=== PATIENT | male | born 1965 | race Caucasian/White ===

== ENCOUNTER 2020-02-23 08:10 | Day surgery (SDC) | payer OTHER, SELFPAY ==
--- NOTE | ~2020-02-23 | XR_ITS ---
EXAMINATION: XR abdomen/kub 1V DATE: 02/23/2020 10:40 INDICATION: Nephrolithiasis. Preoperative evaluation for lithotripsy. TECHNIQUE: A supine view of the abdomen on 2 radiographs was obtained. COMPARISON: 03/13/2014 FINDINGS: There are 4 stones measuring between 2 mm and 5 mm at the left kidney. 6 mm obstructing stone at the proximal left ureter with mild right hydronephrosis. The conspicuity of the bilateral renal collectin g systems suggests possible small amount of excreted contrast. Correlate with clinical history. Uncha nged pattern of phleboliths in the pelvis. Normal bowel gas pattern. Mild lumbar dextrocurvature with moderate spondylosis. IMPRESSION: 1. Bilateral nephrolithiasis with obstructing 6 mm proximal right ureteral stone resulting in mild ri ght hydronephrosis. Reviewed, dictated and finalized at location A. IMPRESSION: 1. Bilateral nephrolithiasis with obstructing 6 mm proximal right ureteral ston e resulting in mild right hydronephrosis.
[2020-02-23 08:39] VITALS: BMI 30.9
--- NOTE | 2020-02-23 11:25 | ECG_ITS ---
Measurements Intervals [place] Rate: 75 P: 50 LA: 170 QRS: 68 QRSD: 102 T: 47 QT: 366 QTc: 411 Interpretive Statements SINUS RHYTHM POSSIBLE LEFT ATRIAL ENLARGEMENT BASELINE ARTIFACT- II, III, AVL, AVF, V2, V6 BORDERLINE ECG Electronically Signed On 02-23-2020 12:23:54 CDT by Matthieu Tsang D.O.
--- NOTE | 2020-02-23 11:52 | WPDANESEPPF ---
Anes - Initial Pre Proc Eval Procedure: Operation Date: 02/23/20 12:30 Proposed Procedures p Right Ureteral Extracorporeal Shock Wave Lithotripsy - John Orr MD Date/Time: 02/23/20 11:52 Surgeon: John Orr MD Pre Op Diagnosis: right ureteral stone Patient Data Age: 54 Gender: M Height: 6 ft 2 in Weight: 109.09 kg Allergies Allergy/AdvReac Type Severity Reaction Status Date / Time No Known Allergies Allergy Verified 02/23/20 08:53 Home Medications Medication Instructions Recorded Confirmed Type allopurinol 200 mg PO DAILY 02/23/20 02/23/20 History allopurinol 300 mg PO DAILY 02/23/20 02/23/20 History aspirin 81 mg PO DAILY 02/23/20 02/23/20 History atorvastatin 40 mg PO DAILY 02/23/20 02/23/20 History cholecalciferol (vitamin D3) 25 mcg PO DAILY 02/23/20 02/23/20 History [Vitamin D3] colchicine 0.6 mg PO DAILY PRN 02/23/20 02/23/20 History divalproex 500 mg PO DAILY 02/23/20 02/23/20 History hydrocodone-acetaminophen 1 tablet PO Q6H PRN 02/23/20 02/23/20 History ibuprofen 600 mg PO TID PRN 02/23/20 02/23/20 History ketorolac 10 mg PO QID PRN 02/23/20 02/23/20 History omeprazole 40 mg PO DAILY 02/23/20 02/23/20 History ondansetron 4 mg PO Q8H PRN 02/23/20 02/23/20 History tamsulosin 0.4 mg PO DAILY 02/23/20 02/23/20 History Patient hx anesthesia problems: none Family hx anesthesia problems: none PMFSH Past Medical History Medical History (Updated 02/23/20 @ 11:52 by Dayron Skaggs MD) CVA (cerebral vascular accident) no residual except gets hot quickly with exertion GERD (gastroesophageal reflux disease) Hyperlipidemia PARUL (obstructive sleep apnea) Social History Social History Smoking status: Never smoker Spiritual care concerns: No Anes - Eval Final PreProcedure Day of Procedure 02/23/20 11:52 Patient weight: obese Heart: regular rate and rhythm Lungs: clear to auscultation Airway: Mallampati scale class III Neurological: alert and oriented Last oral intake: >/= 8 hours ASA classification: III Emergent: no Anesthetic plan: proceed Anesthesia type and monitoring: general LMA and standard monitoring Informed Consent: The patient's anesthetic plan and its attendant risks and benefits were discussed with the patient/family/POA. Questions were solicited and answers provided to the satisfaction of the patient/family/POA.
[2020-02-23] MEDS: LACTATED RINGERS 1,000 ML 30 ML IV CONT (12:00)
[2020-02-23 12:10] LABS: INR 1.1; Prothrombin Time 13.4 Seconds (11.1-14.7)
[2020-02-23 12:11] LABS: Partial Thromboplastin Time 29.8 SECONDS (22.3-36.8)
--- NOTE | 2020-02-23 12:59 | PM.HPGS ---
History of Present Illness History of Present Illness Consent: Risks, benefits, and alternatives have been discussed and questions answered. Patient agrees to proceed with procedure. Chief complaint: right ureteral stone Narrative: Yusef Wylie is a 54 year old male who's a recurrent stone former. He was in ER yesterday with right renal colic. CT imaging revealed 6-7mm right mid-ureteral stone and smaller renal stones. Review of Systems Cardiovascular: Cardiovascular: Denies chest pain, Denies lightheadedness, Denies palpitations and Denies dyspnea Respiratory: Respiratory: Denies dyspnea Gastrointestinal: Gastrointestinal: Denies diarrhea, Denies nausea and Denies vomiting Genitourinary: Genitourinary: Denies hematuria and Denies dysuria Endocrine: Endocrine: Denies palpitations [facility] Past Medical History Medical History CVA (cerebral vascular accident) no residual except gets hot quickly with exertion GERD (gastroesophageal reflux disease) Hyperlipidemia PARUL (obstructive sleep apnea) Social History Social History Smoking status: Never smoker Spiritual care concerns: No Meds Home Medications and Allergies Home Medications Medication Instructions Recorded Confirmed Type allopurinol 200 mg PO DAILY 02/23/20 02/23/20 History allopurinol 300 mg PO DAILY 02/23/20 02/23/20 History aspirin 81 mg PO DAILY 02/23/20 02/23/20 History atorvastatin 40 mg PO DAILY 02/23/20 02/23/20 History cholecalciferol (vitamin D3) 25 mcg PO DAILY 02/23/20 02/23/20 History [Vitamin D3] colchicine 0.6 mg PO DAILY PRN 02/23/20 02/23/20 History divalproex 500 mg PO DAILY 02/23/20 02/23/20 History hydrocodone-acetaminophen 1 tablet PO Q6H PRN 02/23/20 02/23/20 History ibuprofen 600 mg PO TID PRN 02/23/20 02/23/20 History ketorolac 10 mg PO QID PRN 02/23/20 02/23/20 History omeprazole 40 mg PO DAILY 02/23/20 02/23/20 History ondansetron 4 mg PO Q8H PRN 08/28/20 08/28/20 History tamsulosin 0.4 mg PO DAILY 02/23/20 02/23/20 History Allergies Allergy/AdvReac Type Severity Reaction Status Date / Time No Known Allergies Allergy Verified 02/23/20 12:41 Exam Const: General: no acute distress Resp: Effort & Inspection: normal respiratory effort GI: Inspection: non-distended GI Palp: No abdominal tenderness and No Guarding due to palpation present (GI) Auscultation: normal bowel sounds Assessment and Plan Assessment and plan (1) Right ureteral stone: Code(s): N20.1 - Calculus of ureter Status: Acute Assessment and Plan: Right ESWL
[2020-02-23] MEDS: ceFAZolin 2 GM/D5W 50 ML 2 GM/50 ML BAG IVPB (13:12)
[2020-02-23 14:03] VITALS: BP 171/90; PULSE 84; RESP 12; TEMP 36.4; O2SAT 100
[2020-02-23 14:15] VITALS: BP 154/75; PULSE 81; RESP 20; O2SAT 98
--- NOTE | 2020-02-23 14:18 | PM.PROC ---
Procedure Note - Detailed Date of procedure: 02/23/20 Pre-op diagnosis: right ureteral stone Post-op diagnosis: same Procedure performed: Right ESWL Description of procedure: The patient was brought to the operative suite where he was placed in the supine position on the Dornier lithotripsy table. The focal point of the lithotripter was placed at a 7mm right mid-ureteral calculus. A total of 3000 shocks were delivered at a power setting of 8. There appeared to be good fragmentation of the stone. The patient tolerated the procedure well and was taken to the recovery room in good condition. Anesthesia: GLMA Surgeon: John Orr MD Estimated blood loss (mL): 0 Drains: No Packing: No Pathology: none sent Complications: No immediate complications Condition: stable Disposition: PACU
[2020-02-23 14:30] VITALS: BP 130/75; PULSE 80; RESP 18; O2SAT 93
[2020-02-23 14:41] VITALS: BP 145/71; PULSE 75; RESP 16
[2020-02-23 15:11] VITALS: BP 145/75; PULSE 75; RESP 16
[2020-02-23 15:41] VITALS: BP 126/68; PULSE 72; RESP 16
== END 2020-02-23 16:00 | disposition home or self-care (01) ==
PROVIDERS: Anesthesiology; Visit Provider Urology
PROC: (CPT 50590; principal; 2020-02-23 12:30)
DX: N20.1 Calculus of ureter (principal); E78.5 Hyperlipidemia, unspecified; K21.9 Gastro-esophageal reflux disease without esophagitis; G47.33 Obstructive sleep apnea (adult) (pediatric); Z86.73 Personal history of transient ischemic attack (TIA), and cerebral infarction without residual deficits; Z79.82 Long term (current) use of aspirin; Z79.899 Other long term (current) drug therapy
CPT/HCPCS: 50590; 36415; 74018; 85610; 85730; 93005; J0690; J1100; J2250; J2405; J2704; J3010; J7120

== ENCOUNTER 2020-03-12 10:59 | Outpatient (CLI) | payer OTHER, SELFPAY ==
--- NOTE | ~2020-03-12 | XR_ITS ---
EXAMINATION: XR abdomen/kub 1V DATE: 03/12/2020 11:13 INDICATION: Right ureteral stone. TECHNIQUE: A supine view of the abdomen on 2 radiographs was obtained. COMPARISON: CT abdomen and pelvis 05/17/2012, abdomen radiographs 02/23/2020, 03/13/2014 FINDINGS: There are no dilated loops of bowel. There are phleboliths in left pelvis. There are 3 ston es in left kidney measuring up to 4 mm. There are 6 mm and 3 mm stones in proximal right ureter. IMPRESSION: 1. Stones in the proximal right ureter and left kidney. Reviewed, dictated and finalized at location A.
== END 2020-03-12 11:00 | disposition home or self-care (01) ==
PROVIDERS: Visit Provider Urology
DX: N20.1 Calculus of ureter (principal); N20.0 Calculus of kidney
CPT/HCPCS: 74018

== ENCOUNTER 2020-03-19 08:42 | Outpatient (CLI) | payer OTHER, SELFPAY ==
--- NOTE | ~2020-03-19 | XR_ITS ---
XR abdomen/kub 1V 03/19/2020 09:00 Indication: Follow-up ureteral stone Procedure: KUB Comparison: Comparison to multiple prior studies sequentially, with oldest reviewed study dated 02/07. Findings: There are right ureteral stones at the L3-4 level. There are multiple left renal stones. Derick wel gas pattern nonobstructive. There are pelvic phleboliths. Moderate lumbar spondylosis. Impression: 1: Stable position to right ureteral and left renal stones. Reviewed, dictated and finalized at location A. Impression: 1: Stable position to right ureteral and left renal stones.
== END 2020-03-19 08:43 | disposition home or self-care (01) ==
LOC: ANHIMG 08:45
PROVIDERS: Visit Provider Urology
DX: N20.1 Calculus of ureter (principal)
CPT/HCPCS: 74018

== ENCOUNTER 2020-03-20 08:39 | Outpatient (CLI) | payer OTHER, SELFPAY ==
[2020-03-20 18:39] LABS: SARS-CoV-2 RNA PCR Negative
== END 2020-03-20 08:40 | disposition home or self-care (01) ==
LOC: ANHCOVIDDT 08:39
PROVIDERS: Visit Provider Urology
DX: Z01.812 Encounter for preprocedural laboratory examination (principal); Z20.828 Contact with and (suspected) exposure to other viral communicable diseases
CPT/HCPCS: 87635; C9803; U0003

== ENCOUNTER 2020-03-22 01:57 | Day surgery (SDC) | payer OTHER, SELFPAY ==
[2020-03-20 11:01] VITALS: BMI 30.9
[2020-03-22] VITALS (9 sets, daily range): BP systolic 122–158; BP diastolic 80–96; PULSE 55–62; RESP 9–22; TEMP 36.4; O2SAT 98–99
--- NOTE | ~2020-03-22 | XR_ITS ---
EXAMINATION: XR retrograde pyelo w/stent RT DATE: 03/22/2020 13:00 INDICATION: Right renal stone extraction and stent placement TECHNIQUE: Fluoroscopic images from a right internal ureteral stent placement are submitted for elif mckinney 130 seconds of fluoroscopy time. 89 fluoroscopic images. FINDINGS: There is a right double-J internal ureteral stent projecting in expected position, with proximal [place] loop at the level of the renal pelvis and distal loop in the pelvis within the bladder lumen. IMPRESSION: 1. Right internal ureteral stent placement. Please refer to real-time procedural findings for dalila morgan. Reviewed, dictated and finalized at location A. IMPRESSION: 1. Right internal ureteral stent placement. Please refer to real-time procedu ral findings for details.
--- NOTE | 2020-03-22 06:45 | WPDHPUPDATE1 ---
History and Physical Update Update Date/Time: 03/22/20 06:45 History and Physical has been reviewed, including an updated exam of the patient. There are NO changes in the patient's condition. Risks, benefits, and alternatives have been discussed and questions answered. Patient agrees to proceed with procedure.
--- NOTE | 2020-03-22 10:44 | WPDANESEPPF ---
Anes - Initial Pre Proc Eval Procedure: Operation Date: 03/22/20 12:15 Proposed Procedures p Cystoscopy, Right Ureteroscopy, Right Stone Extraction, Possible Right Stent Placement - John Orr MD s Holmium Laser Procedure - John Orr MD Date/Time: 03/22/20 10:44 Surgeon: John Orr MD Pre Op Diagnosis: Rt ureteral/kidney stone Patient Data Age: 54 Gender: M Height: 6 ft 2 in Weight: 109.09 kg Allergies Allergy/AdvReac Type Severity Reaction Status Date / Time No Known Allergies Allergy Verified 03/20/20 11:01 Home Medications Medication Instructions Recorded Confirmed Type allopurinol 200 mg PO DAILY 02/23/20 03/20/20 History allopurinol 300 mg PO DAILY 02/23/20 03/20/20 History aspirin 81 mg PO DAILY 02/23/20 03/20/20 History atorvastatin 40 mg PO DAILY 02/23/20 03/20/20 History cholecalciferol (vitamin D3) 25 mcg PO DAILY 02/23/20 03/20/20 History [Vitamin D3] colchicine 0.6 mg PO DAILY PRN 02/23/20 03/20/20 History divalproex 500 mg PO DAILY 02/23/20 03/20/20 History hydrocodone-acetaminophen 1 tablet PO Q6H PRN 02/23/20 03/20/20 History ibuprofen 600 mg PO TID PRN 02/23/20 03/20/20 History ketorolac 10 mg PO QID PRN 02/23/20 03/20/20 History omeprazole 40 mg PO DAILY 02/23/20 03/20/20 History ondansetron 4 mg PO Q8H PRN 02/23/20 03/20/20 History ketorolac 10 mg PO Q6H 5 Days #20 tablet 03/22/20 Rx sulfamethoxazole-trimethoprim 1 tablet PO Q12H #6 tablet 03/22/20 Rx Patient hx anesthesia problems: none Family hx anesthesia problems: none PMFSH Past Medical History Medical History CVA (cerebral vascular accident) no residual except gets hot quickly with exertion GERD (gastroesophageal reflux disease) Hyperlipidemia PARUL (obstructive sleep apnea) Social History Social History Smoking status: Never smoker Spiritual care concerns: No Anes - Eval Final PreProcedure Day of Procedure 03/22/20 10:44 Patient weight: obese Heart: regular rate and rhythm Lungs: clear to auscultation Airway: Mallampati scale class II and special considerations poor opening Neurological: alert and oriented Last oral intake: >/= 8 hours ASA classification: III Emergent: no Anesthetic plan: proceed Anesthesia type and monitoring: general LMA Informed Consent: The patient's anesthetic plan and its attendant risks and benefits were discussed with the patient/family/POA. Questions were solicited and answers provided to the satisfaction of the patient/family/POA.
[2020-03-22] MEDS: LACTATED RINGERS 1,000 ML 30 ML IV CONT (10:45)
[2020-03-22] MEDS: ceFAZolin 2 GM/D5W 50 ML 2 GM/50 ML BAG IVPB (11:53)
[2020-03-22] MEDS: KETOROLAC 30 MG/ML VIAL (*BKC) IV PUSH (12:05)
[2020-03-22] MEDS: LIDOCAINE HCL 2% GEL UROJET 10 ML PKG MUCOUS MEM (12:06)
--- NOTE | 2020-03-22 13:02 | PM.PROC ---
Procedure Note - Detailed Date of procedure: 03/22/20 Pre-op diagnosis: Rt ureteral/kidney stone Procedure performed: 1. Cystoscopy with right ureteroscopy, laser lithotripsy with stone extraction and right ureteral stent placement. 2. Right retrograde pyelography. Description of procedure: The patient was brought to the operative suite where he is prepped and draped in a routine sterile fashion while in the dorsal lithotomy position after the uneventful induction of a general LMA anesthetic. A 19F rigid cystoscope was placed in the bladder. There are no urethral strictures. His prostatic urethra measures, approximately, 2.0cm with no median lobe enlargement. The bladder mucosa was endoscopically normal without hyperemia or neoplasm. There was a single, orthotopic ureteral orifice bilaterally. A 0.035 glidewire was advanced into the right renal pelvis under fluoroscopy. The distal ureter was dilated with an 8F/10F ureteral dilator. Ureteroscopy was undertaken with a 7.5F flexible ureteroscope. During ureteroscopy I fractured the stone into smaller pieces using a 273 micron Holmium laser fiber with the Holmium laser. I was able to then extract the stone pieces using a 1.9F Escape, disposable stone basket. The retrograde pyelogram was obtained via an it angiographic catheter to ensure proper placement of the stent. Due to the extent of this manipulation I did place a 4.8F double-J ureteral stent. The proximal coil of the stent was confirmed to be in the renal pelvis and the distal coil in the bladder. The patient's bladder was emptied and he was taken to the recovery room having tolerated this procedure well. Anesthesia: GLMA Surgeon: John Orr MD Estimated blood loss (mL): 0 Drains: Yes (4.8F right ureteral stent) Packing: No Pathology: yes Complications: No immediate complications Condition: stable Disposition: PACU
--- NOTE | 2020-03-22 15:28 | SUR.PHASEII ---
discharge criteria met 1510,awaiting ride home.discharged home 1530 with ride.
== END 2020-03-22 15:10 | disposition home or self-care (01) ==
PROVIDERS: Visit Provider Urology
PROC: (CPT 52352; principal; 2020-03-22 12:15)
PROC: (CPT 52356; 2020-03-22 12:15)
DX: N20.1 Calculus of ureter (principal); E78.5 Hyperlipidemia, unspecified; G47.33 Obstructive sleep apnea (adult) (pediatric); K21.9 Gastro-esophageal reflux disease without esophagitis; Z86.73 Personal history of transient ischemic attack (TIA), and cerebral infarction without residual deficits; E66.9 Obesity, unspecified; Z68.33 Body mass index [BMI] 33.0-33.9, adult
CPT/HCPCS: 52356; 74420; 82365; 88300; A9270; C1758; C1769; C2617; J0131; J0690; J1100; J1885; J2250; J2405; J2704; J3010; J7120; Q9966